=== PATIENT | female | born 1960 | race Caucasian/White ===

== ENCOUNTER 2016-10-30 20:59 | Inpatient (IN) | payer MEDICARE, MEDICAID ==
--- NOTE | 2016-10-30 21:44 | ER Document Report ---
ED Medical Screen (RME) - General Stated Complaint: POSSIBLE SYNCOPE,CONGESTION Mode of Arrival: Wheelchair Information source: Patient Notes: Patient is a 56 yo FM who presents with vomiting and diarrhea for the past 3 days with associated anorexia. She has been unable to keep down even water and ice chips. She also endorses 3 day history of nasal congestion. She states today she "blacked out" 3 times today, once causing her to fall and hit her head on the kitchen sink. 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 She remembers each fall. She states she has pain in her lower back and rates it as a 4/5. Endorses cough, subjective fever, chills. She has tried tums with no relief but has not taken any of her reflux meds in 2 days. Review of Systems - Review of Systems Constitutional: See HPI Gastrointestinal: See HPI Musculoskeletal: See HPI Physical Exam - Vital signs Vitals: Temp Pulse Resp BP Pulse Ox 98.6 F 99 16 144/83 H 98 10/30/16 21:29 10/30/16 21:29 10/30/16 21:29 10/30/16 21:29 10/30/16 21:29 - Notes Notes: General: Appears ill but non-toxic. Sitting comfortably in wheelchair. No obvious signs of trauma. Course - Vital Signs Vital signs: Temp Pulse Resp BP Pulse Ox 98.6 F 99 16 144/83 H 98 10/30/16 21:29 10/30/16 21:29 10/30/16 21:29 10/30/16 21:29 10/30/16 21:29
[2016-10-31] MEDS ORDERED: ONDANSETRON HCL INJ/PF 4 MG/2 ML SDV IV ONE (00:50)
[2016-10-31] MEDS ORDERED: NORMAL SALINE 1000 ML 1,000 ML IV ONE ×2 (00:50→03:42)
[2016-10-31] MEDS ORDERED: METOCLOPRAMIDE HCL ORAL SOLN 10 MG/10 ML UDCUP PO ONE (02:09)
[2016-10-31] MEDS ORDERED: LIDOCAINE 2% VISCOUS SOLN 20 ML UDCUP PO ONE (02:09)
[2016-10-31] MEDS ORDERED: MAG HYDROX/AL HYDROX/SIMETH SUSP 30 ML UDCUP PO ONE (02:09)
[2016-10-31 02:12] LABS: ABSOLUTE BASOPHILS # (AUTO) 0.1 10^3/uL (0.0-0.2); ABSOLUTE LYMPHOCYTES (AUTO) 0.7 10^3/uL (0.5-4.7); ABSOLUTE MONOCYTES (AUTO) 0.6 10^3/uL (0.1-1.4); ABSOLUTE NEUT (AUTO) 7.5 10^3/uL (1.7-8.2); BASOPHILS % (AUTO) 0.6 % (0-2); EOSINOPHILS % (AUTO) 0.1 % (0-6); HEMATOCRIT 44.9 % (36.0-47.0); HEMOGLOBIN 14.7 g/dL (12.0-15.5); HGB HCT DIFFERENCE -0.8; LYMPHOCYTES % (AUTO) 8.2 % (13-45); MEAN CORPUSCULAR HEMOGLOBIN 29.5 pg (27.0-33.4); MEAN CORPUSCULAR HGB CONC 32.7 g/dL (32.0-36.0); MEAN CORPUSCULAR VOLUME 90 fl (80-97); MONOCYTES % (AUTO) 7.1 % (3-13); RED BLOOD COUNT 4.96 10^6/uL (3.72-5.28); RED CELL DISTRIBUTION WIDTH 16.4 % (11.5-14.0); WHITE BLOOD COUNT 8.9 10^3/uL (4.0-10.5)
[2016-10-31 02:40] LABS: ADD ON TESTING BLD IN LAB ACKNOWLEDGE
[2016-10-31 03:00] LABS: LIPASE 139.2 U/L (23-300)
[2016-10-31 03:02] LABS: ALANINE AMINOTRANSFERASE 39 U/L (9-52); ALBUMIN 3.3 g/dL (3.5-5.0); ALKALINE PHOSPHATASE 100 U/L (38-126); ANION GAP 12 (5-19); ASPARTATE AMINO TRANSFERASE 31 U/L (14-36); BILIRUBIN,TOTAL 0.2 mg/dL (0.2-1.3); BLOOD UREA NITROGEN 16 mg/dL (7-20); CALCIUM 10.4 mg/dL (8.4-10.2); CARBON DIOXIDE 26 mmol/L (22-30); CHLORIDE 106 mmol/L (98-107); CREATININE RESULT 0.68 mg/dL (0.52-1.25); GLUCOSE 108 mg/dL (75-110); POTASSIUM 3.7 mmol/L (3.6-5.0); TOTAL PROTEIN 5.8 g/dL (6.3-8.2)
[2016-10-31] MEDS ORDERED: ONDANSETRON ODT 4 MG TAB (6 TAB/DSPK) PO PRN (03:12)
[2016-10-31] MEDS ORDERED: CIPROFLOXACIN HCL 500 MG TABLET PO ONE (03:12)
--- NOTE | 2016-10-31 03:14 | ER Document Report ---
ED General - General Chief Complaint: Nausea/Vomiting/Diarrhea Stated Complaint: POSSIBLE SYNCOPE,CONGESTION Mode of Arrival: Wheelchair Notes: Patient is a 56-year-old female who presents with 3 days of nausea, vomiting and diarrhea with associated lightheadedness and 3 episodes of syncope. Patient states that during one of the episodes of lightheadedness and/or syncope she did land on her right low back and has had a mild pain to the right perilumbar spine since that time. Patient may have also struck her head on a sink but denies any pain to the area. This did occur greater than 48 hours ago and she denies any headache, weakness, numbness, or confusion. She does not use anticoagulation. Nothing improves or worsens the pain. Denies any associated weakness, numbness, bladder incontinence or retention, or difficulty with ambulation. States she's been taking tums at home without improvement of her symptoms. No known sick contacts. She has not spoken to her primary care physician regarding today's concerns. She has not tried anything for her vomiting or diarrhea. She has not noted any melena or hematochezia. No bilious vomiting. No history of small bowel obstruction. She is continued to pass flatus. Has been able to tolerate small amounts of water. TRAVEL OUTSIDE OF THE [place] IN LAST 30 DAYS: No - Related Data Allergies/Adverse Reactions: cefaclor [From [facility]] Allergy (Verified 10/31/16 01:23) Past Medical History - General Information source: Patient Last Menstrual Period: n/a - Social History Smoking Status: Current Every Day Smoker Chew tobacco use (# tins/day): No Frequency of alcohol use: None Drug Abuse: None Lives with: Spouse/Significant other Family History: Reviewed & Not Pertinent Patient has suicidal ideation: No Patient has homicidal ideation: No Review of Systems - Review of Systems Notes: Constitutional: Negative for fever. HENT: Negative for sore throat. Eyes: Negative for visual changes. Cardiovascular: Negative for chest pain. Respiratory: Negative for shortness of breath. Gastrointestinal: Negative for abdominal pain, positive for vomiting and diarrhea Genitourinary: Negative for dysuria. Musculoskeletal: Positive for back pain. Skin: Negative for rash. Neurological: Negative for headaches, weakness or numbness. 10 point ROS negative except as marked above and in HPI. Physical Exam - Vital signs Vitals: Temp Pulse Resp BP Pulse Ox 98.6 F 99 16 144/83 H 98 10/30/16 21:29 10/30/16 21:29 10/30/16 21:29 10/30/16 21:29 10/30/16 21:29 Interpretation: Hypertensive Notes: PHYSICAL EXAMINATION: GENERAL: Well-appearing, well-nourished and in no acute distress. HEAD: Atraumatic, normocephalic. EYES: Pupils equal round and reactive to light, extraocular movements intact, sclera anicteric, conjunctiva are normal. ENT: nares patent, oropharynx clear without exudates. Moist mucous membranes. NECK: Normal range of motion, supple without lymphadenopathy LUNGS: Breath sounds clear to auscultation bilaterally and equal. No wheezes rales or rhonchi. HEART: Regular rate and rhythm without murmurs ABDOMEN: Soft, nontender, normoactive bowel sounds. No guarding, no rebound. No masses appreciated. EXTREMITIES: Normal range of motion, no pitting or edema. No cyanosis. NEUROLOGICAL: No focal neurological deficits. Moves all extremities spontaneously and on command. PSYCH: Normal mood, normal affect. SKIN: Warm, Dry, normal turgor, no rashes or lesions noted. Course - Re-evaluation Re-evalutation: 10/31/16 03:19 Presentation of an overall well-appearing patient in no acute distress with complaints of nausea, vomiting, diarrhea. This is consistent with likely gastroenteritis. Patient has no abdominal tenderness on exam and specifically no tenderness in the RLQ, LLQ, RUQ. Overall well hydrated on exam. Able to tolerate oral intake here in the emergency department. Low clinical suspicion for any acute life-threatening etiology based on exam and history including acute cholecystitis, SBO, appendicitis, nephrolithiasis, or pylonephritis. Regarding her possible head trauma: No focal neurologic deficits on exam, no evidence of basilar skull fracture on exam without evidence of hemotympanum, raccoon eyes, or periauricular hematoma. No papilledema. Patient is not on anticoagulation. GCS is 15. No loss of consciousness. No episodes of vomiting. Patient is therefore negative via [place] head CT criteria and CT imaging will not be obtained at this time. Her laboratories here do not demonstrate any evidence of a hydration acute kidney injury. CBC unremarkable and a single troponin is also negative given that patient apparently did complain of chest pain in triage but denies this complaint to me. So the syncope appear most related to dehydration in the setting of multiple episodes of vomiting. Her EKG is without concerning findings and shows a normal sinus rhythm without QT prolongation, evidence of hypertrophic cardiomyopathy, Yumiko- Parkinson-White syndrome, or Brugada syndrome. At this time will discharge with return precautions and follow-up recommendations. Verbal discharge instructions given a the bedside and opportunity for questions given. Medication warnings reviewed. Patient is in agreement with this plan and has verbalized understanding of return precautions and the need for primary care follow-up in the next 24-72 hours. - Vital Signs Vital signs: Temp Pulse Resp BP Pulse Ox 98.6 F 99 16 144/83 H 98 10/30/16 21:43 10/30/16 21:43 10/30/16 21:43 10/30/16 21:43 10/30/16 21:43 - Laboratory Result Diagrams: 10/31/16 01:45 10/31/16 02:37 Laboratory results interpreted by me: 10/31/16 10/31/16 01:45 02:37 RDW 16.4 H Plt Count 523 H Seg Neutrophils % 84.0 H Lymphocytes % 8.2 L Calcium 10.4 H Total Protein 5.8 L Albumin 3.3 L - Diagnostic Test Radiology reviewed: Image reviewed, Reports reviewed Radiology results interpreted by me: 10/31/16 03:21 Chest x-ray: No acute infiltrate or pneumothorax - EKG Interpretation by Me Additional EKG results interpreted by me: 10/31/16 03:21 Normal sinus rhythm. Rate 73. No ST elevations or depressions. QTC 419. Discharge - Discharge Clinical Impression: Vomiting and diarrhea Condition: Good Disposition: HOME, SELF-CARE Additional Instructions: Your symptoms are likely due to a viral illness and should resolve in the next several days. However, given the duration of your symptoms even started on antibiotics to treat a possible bacterial colitis. Continue to stay hydrated with plenty of solution such as Gatorade or Pedialyte. You are being prescribed Zofran to take as needed for nausea and vomiting. Please return if you develop severe abdominal pain, pass out, become unable to tolerate any oral fluids for 12 more hours, or any other symptoms that are concerning to you. Prescriptions: Ciprofloxacin HCl [Cipro 500 mg Tablet] 500 mg PO BID #10 tablet
[2016-10-31] MEDS ORDERED: PROCHLORPERAZINE EDISYLATE INJ 10 MG/2 ML VIAL IV ONE (03:27)
[2016-10-31] MEDS ORDERED: DIPHENHYDRAMINE HCL 50 MG/ML VIAL IV ONE (03:27)
[2016-10-31] MEDS ORDERED: 1/2 NORMAL SALINE 2,000 ML IV ONE (07:17)
[2016-10-31] MEDS ORDERED: POTASSI CL 20 MEQ/D5-1/2NS 1L 1,000 ML IV PRN (07:19)
[2016-10-31] MEDS ORDERED: NICOTINE 21 MG/24 HR PATCH.TD24 TD PRN (07:21)
[2016-10-31] MEDS ORDERED: ACETAMINOPHEN 325 MG TABLET PO PRN (07:23)
[2016-10-31 07:32] LABS: ADD ON TESTING BLD IN LAB ACKNOWLEDGE
--- NOTE | 2016-10-31 07:50 | PDOC H&P ---
History of Present Illness Admission Date/PCP: Out of town Patient complains of: N/V/D, syncope History of Present Illness: MAGGIE CORTES is a 56 year old female, pack-a-day smoker, and with underlying hypothyroidism, easy bruising, mild reflux, and mild anxiety and depression, without suicidal or homicidal ideation, presents to the emergency room for evaluation of above complaints. Patient has been discussed with emergency room physician who evaluated the patient. She describes a three-day history of multiple episodes of nausea vomiting and diarrhea. No hematemesis, hematochezia, coffee ground emesis or melena. States she has mild episodes of this perhaps once a year, but has never been as sick as she has for the last 2 or 3 days. She's had 3 syncopal episodes, and thinks she probably struck her head on her bathroom sink one of these times. Has not vomited in a number of hours now but short time prior to my being called about the patient, she reportedly did have a large watery stool. Intermittent mostly cramping upper abdominal discomfort. Subjective fever and chills. She's been so weak in the emergency room, that she cannot get up off the stretcher by herself. Has only been able to hold down a few sips of water. Remains nauseated. No history of C. difficile infection. No unusual oral intake. No friends or family with similar complaints. Laboratory results are listed in [facility] and are reviewed. X-ray summary results are listed below, with full report(s) reviewed. . EKG reviewed . Social history/personal habits: . 2 children. On disability due to degenerative spinal disease. Pack of cigarettes per day. No alcohol or illicit drug use. Should patient become mentally incapacitated, surrogate health care decision maker uncertain at this point in time.. Family History : Children and siblings are healthy. Father of a myocardial infarction. Mother of cancer. Allergies/adverse reactions are listed in [facility] and are reviewed. Home medications are reviewed by discussion with patient and review of her list of medications from her smartphone and are to be reconciled by nursing staff in [facility]. Home medications initially autopopulated into [facility] may not accurately reflect patient's true medications, dosages, and/or frequencies. REVIEW OF SYSTEMS: Constitutional: See history and present illness. Eyes: Wears glasses. ENT: No swallowing problems or complaints. Partial hearing loss. Pulmonary: No current complaints. Cardiovascular: No current complaints, including chest pain. Gastrointestinal: See history and present illness. Skin: No current complaints, including rashes. Hematologic: Easy bruising. Neurologic: No current complaints, including numbness or tingling. Musculoskeletal: Chronic spine pain from degenerative disease. Psychiatric: Anxiety depression; denies suicidal or homicidal ideation. Endocrine: No current complaints, including polyuria. Genitourinary: No current complaints, including dysuria. PHYSICAL EXAMINATION: 5 feet 3 inches tall. 47.8 kg. BMI 18.7 kg/m. Blood pressure 144/63. 90% saturation on room air. Pulse 78 and regular. Respirations are 18 and unlabored. Temperature 98.8. Thin somewhat chronically ill-appearing female who appears a bit older than her stated age. Appears somewhat fatigued, and appears not to feel very well. Otherwise, pleasant awake alert and cooperative. Female emergency room nurse Missy is present. Son is present at her side, found asleep and snoring. Patient approves. Skin is warm and dry. No grossly obvious evidence of rash in areas of skin examined. No subcutaneous nodules palpated. ENT: Hearing grossly normal to normal conversation. Tongue midline on protrusion pink and slightly tacky Eyes: No scleral icterus. Pupils equal and reactive to light at 4 mm. [place] conjunctivae. She has a very small area of ecchymosis over the lateral aspect of her right upper periorbital ridge. No braden raccoon eyes on either side. Neck is supple and nontender to gentle active range of motion and palpation. Midline trachea. No palpable thyroid nodule mass enlargement or tenderness. Lymphatic: No palpable cervical or clavicular nodes. Neck and lymphatic exams limited by patient body habitus. Psychiatric: Fair to reasonable insight into acute and chronic medical issues. Oriented to time location and why here. Lungs: Auscultation reveals clear and equal breath sounds bilaterally. No use of accessory respiratory muscles. Cardiovascular: Heart regular rate and rhythm, without gallop murmur or rub. No carotid or abdominal aortic bruits. No ankle or pedal edema. palpable dorsalis pedis pulses. Abdomen: soft, slightly distended with positive bowel sounds. Very mild diffuse upper abdominal discomfort to palpation. Certainly no evidence of guarding or peritoneal signs. No palpable upper abdominal mass or organomegaly. Extremities: Feet are warm and dry. No calf tenderness to compression. No grossly obvious visual evidence of calf swelling. Gentle manipulation of lower extremities fails to reveal any obvious evidence of injury or instability to knees hips or ankles. Neurologic: Moves upper extremities grossly normally. Patellar reflexes absent. Absent Babinski. Light touch is intact at feet. Dorsiflexion and plantarflexion of feet 5 / 5 and symmetric. Past Medical History Cardiac Medical History: Denies: Congestive Heart Failure, DVT, Myocardial Infarction, Hyperlipidema, Hypertension, Pulmonary Embolism Pulmonary Medical History: Denies: Asthma, Chronic Obstructive Pulmonary Disease (COPD) Neurological Medical History: Denies: Hemorrhagic CVA, Ischemic CVA, Seizures Endocrine Medical History: Reports: Hypothyroidism Denies: Diabetes Mellitus Type 1, Diabetes Mellitus Type 2, Hyperthyroidism GI Medical History: Reports: Gastroesophageal Reflux Disease Denies: Cirrhosis, Hepatitis, Peptic Ulcer Disease Psychiatric Medical History: Reports: Depression, General Anxiety Disorder, Tobacco Dependency Infectious Medical History: Denies: Hepatitis B, Hepatitis C Past Surgical History Past Surgical History: Reports: Appendectomy, Cholecystectomy, Tonsillectomy Social History Information Source: Patient, Emergency Med Personnel, [facility] Records Smoking Status: Current Every Day Smoker Frequency of Alcohol Use: None Hx Recreational Drug Use: No Drugs: None - Advance Directive Resuscitation Status: Full Code Family History Family History: Reviewed & Not Pertinent Parental Family History Reviewed: Yes Children Family History Reviewed: Yes Sibling(s) Family History Reviewed.: Yes Medication/Allergy Home Medications: Celecoxib 200 mg PO DAILY 10/31/16 Doxycycline Hyclate [Vibramycin] 100 mg PO BID 10/31/16 Duloxetine HCl [Cymbalta] 60 mg PO DAILY 10/31/16 Esomeprazole Mag Trihydrate [Nexium] 40 mg PO DAILY 10/31/16 Levothyroxine Sodium [Synthroid 0.1 mg Tablet] 0.1 mg PO DAILY 10/31/16 Oxycodone HCl 10 mg PO Q8HP PRN 10/31/16 Tizanidine HCl 4 mg PO Q8HP PRN 10/31/16 Tramadol HCl [Ultram 50 mg Tablet] 50 mg PO Q8HP PRN 10/31/16 Allergies/Adverse Reactions: cefaclor [From [facility]] Allergy (Verified 10/31/16 01:23) Physical Exam Vital Signs: Temp Pulse Resp BP Pulse Ox 98.8 F 78 18 144/63 H 98 10/31/16 06:50 10/31/16 06:50 10/31/16 06:50 10/31/16 06:50 10/31/16 06:50 Intake & Output 10/30/16 10/31/16 11/01/16 00:59 00:59 00:59 Weight 47.8 kg Results Laboratory Results: 10/31/16 01:45 10/31/16 02:37 10/31/16 10/31/16 10/31/16 01:45 01:45 02:37 WBC 8.9 RBC 4.96 Hgb 14.7 Hct 44.9 MCV 90 MCH 29.5 MCHC 32.7 RDW 16.4 H Plt Count 523 H Seg Neutrophils % 84.0 H Lymphocytes % 8.2 L Monocytes % 7.1 Eosinophils % 0.1 Basophils % 0.6 Absolute Neutrophils 7.5 Absolute Lymphocytes 0.7 Absolute Monocytes 0.6 Absolute Eosinophils 0.0 Absolute Basophils 0.1 Sodium Cancelled Potassium Cancelled Chloride Cancelled Carbon Dioxide Cancelled Anion Gap Cancelled BUN Cancelled Creatinine Cancelled Est GFR ( Amer) Cancelled Est GFR (Non-Af Amer) Cancelled Glucose Cancelled Calcium Cancelled Total Bilirubin Cancelled AST Cancelled ALT Cancelled Alkaline Phosphatase Cancelled Total Protein Cancelled Albumin Cancelled Lipase 139.2 10/31/16 02:37 WBC RBC Hgb Hct MCV MCH MCHC RDW Plt Count Seg Neutrophils % Lymphocytes % Monocytes % Eosinophils % Basophils % Absolute Neutrophils Absolute Lymphocytes Absolute Monocytes Absolute Eosinophils Absolute Basophils Sodium 144.0 Potassium 3.7 Chloride 106 Carbon Dioxide 26 Anion Gap 12 BUN 16 Creatinine 0.68 Est GFR ( Amer) > 60 Est GFR (Non-Af Amer) > 60 Glucose 108 Calcium 10.4 H Total Bilirubin 0.2 AST 31 ALT 39 Alkaline Phosphatase 100 Total Protein 5.8 L Albumin 3.3 L Lipase 10/31/16 01:45 Troponin I < 0.012 Impressions: Chest X-Ray 10/31/16 00:51 IMPRESSION: NO ACUTE RADIOGRAPHIC FINDING IN THE CHEST. Assessment & Plan - Diagnosis (1) Head trauma Qualifiers: Encounter type: initial encounter Qualified Code(s): S09.90XA - Unspecified injury of head, initial encounter Is this a current diagnosis for this admission?: YesPlan: Grossly neurologically intact. CT scan of head without contrast. Discussed with daytime hospitalist team. (2) Syncope Qualifiers: Syncope type: unspecified Qualified Code(s): R55 - Syncope and collapse Is this a current diagnosis for this admission?: YesPlan: Likely due primarily to dehydration. Strongly encouraged patient not to get out of bed without notifying staff to avoid a fall with injury. Orthostatic vital signs every 4 hours while awake, starting at noon today. (3) Vomiting and diarrhea Is this a current diagnosis for this admission?: YesPlan: IV fluid boluses along with maintenance IV fluid. Strict intake and output. Ice chips only. IV Pepcid for gastritis prophylaxis. When necessary Phenergan. Stool for C. difficile is pending. We'll also send stool for culture and sensitivity, along with white cells. Knee high SCDs for DVT prophylaxis, along with subcutaneous heparin. Impression and plans were discussed with patient, who concurs. Time spent in evaluation and management of patient: 58 minutes. (4) Hypothyroid Qualifiers: Hypothyroidism type: unspecified Qualified Code(s): E03.9 - Hypothyroidism, unspecified Is this a current diagnosis for this admission?: YesPlan: TSH is pending. Resume home medications as appropriate once these have been determined and reviewed. - Inpatient Certification Based on my medical assessment, after consideration of the patient's comorbidities, presenting symptoms, or acuity I expect that the services needed warrant INPATIENT care.: Yes I certify that my determination is in accordance with my understanding of Medicare's requirements for reasonable and necessary INPATIENT services [42 CFR 412.3e].: Yes Medical Necessity: Need Close Monitoring Due to Risk of Patient Decompensation, Need For IV Fluids, Need For Continuous Telemetry Monitoring, Risk of Complication if Not Cared For in Hospital Post Hospital Care: D/C or Transfer Summary
[2016-10-31 08:01] LABS: MAGNESIUM 1.7 mg/dL (1.6-2.3)
--- NOTE | 2016-10-31 08:04 | EKG REPORT ---
SEVERITY:- BORDERLINE ECG - SINUS RHYTHM BORDERLINE T ABNORMALITIES, INFERIOR LEADS : Confirmed by: Efrain Falcon MD 31-Oct-2016 08:03:39
[2016-10-31] MEDS ORDERED: LEVOTHYROXINE SODIUM 0.1 MG TABLET PO SCH (10:00)
[2016-10-31] MEDS ORDERED: FAMOTIDINE INJ/PF 20 MG/2 ML SDV IV SCH (10:00)
[2016-10-31] MEDS: PANTOPRAZOLE SODIUM 40 MG VIAL IV SCH (10:30)
[2016-10-31] MEDS: DULOXETINE HCL 30 MG CAPSULE.DR PO SCH (10:30)
[2016-10-31] MEDS ORDERED: HYDROMORPHONE HCL INJ/PF 2 MG/ML AMPULE IV ONE (13:56)
--- NOTE | 2016-10-31 14:00 | PDOC PROGRESS REPORT ---
Subjective Progress Note for:: 10/31/16 Subjective:: Patient does not feel much better than she did on presentation. She continues to have nausea, vomiting, diarrhea. She has no fevers or chills. She has no abdominal pain, no chest pain. She has no headache. Physical Exam Vital Signs: Temp Pulse Resp BP Pulse Ox 98.1 F 59 L 18 122/59 L 97 10/31/16 12:05 10/31/16 12:05 10/31/16 12:05 10/31/16 12:05 10/31/16 12:05 GENERAL: No acute distress, ill appearing HEENT: Conjunctiva clear, nonicteric, moist mucous membranes, no JVD, midline trachea RESPIRATORY: Clear to auscultation bilaterally, no wheezes, no rhonchi CARDIAC: Regular rate and rhythm, no murmurs/gallops/rubs ABDOMEN: Soft, nondistended, nontender, positive bowel sounds, no rebound, no guarding EXTREMETIES: No edema, cyanosis, clubbing NEUROLOGIC: Alert, oriented to person/place/time, CN's grossly intact, no focal deficits SKIN: No rash, wounds PSYCH: Normal mood, normal affect Results Impressions: Head CT 10/31/16 00:00 IMPRESSION: NORMAL BRAIN CT WITHOUT CONTRAST. Chest X-Ray 10/31/16 00:51 IMPRESSION: NO ACUTE RADIOGRAPHIC FINDING IN THE CHEST. Assessment & Plan - Diagnosis (1) Vomiting and diarrhea Is this a current diagnosis for this admission?: YesPlan: Patient probably has some degree of acute gastroenteritis. She also has not taken her chronic oxycodone for 4 days prior to presentation secondary to nausea and vomiting so I suspect there is an opiate withdrawal component to her symptoms. Continue supportive care with antiemetics, IV fluids. I would like to give patient 1 time dose of IV Dilaudid to see if her symptoms niyah. (2) Chronic pain Is this a current diagnosis for this admission?: YesPlan: Patient is on chronic opiate therapy with oxycodone. She has not been able to keep her medications down for the past 4 days secondary to nausea and vomiting. (3) Tobacco abuse Is this a current diagnosis for this admission?: Yes (4) Depression Is this a current diagnosis for this admission?: YesPlan: Continue Cymbalta. (5) Hypothyroid Qualifiers: Hypothyroidism type: unspecified Qualified Code(s): E03.9 - Hypothyroidism, unspecified Is this a current diagnosis for this admission?: YesPlan: TSH is abnormally low. Repeat TSH in the morning. Continue current dose of Synthroid 100 g daily for now. - Time Time Spent with patient: 25-34 minutes Smoking Cessation Education: 3 to 10 minutes
[2016-10-31] MEDS: POTASSI CL 20 MEQ/D5-1/2NS 1L 1,000 ML IV PRN (23:30)
[2016-10-31] MEDS: HYDROMORPHONE HCL INJ/PF 2 MG/ML AMPULE IV PRN (23:32)
[2016-10-31] MEDS: ONDANSETRON HCL INJ/PF 4 MG/2 ML SDV IV PRN (23:33)
[2016-10-31] MEDS: LEVOTHYROXINE SODIUM 0.1 MG TABLET PO SCH (23:33)
[2016-11-01] MEDS: HEPARIN SOD (PORCINE) 5,000 UNIT/ML 1 ML SYRINGE SUBCUT SCH ×3 (01:23→22:45)
[2016-11-01 04:04] LABS: ABSOLUTE BASOPHILS # (AUTO) 0.1 10^3/uL (0.0-0.2); ABSOLUTE LYMPHOCYTES (AUTO) 1.4 10^3/uL (0.5-4.7); ABSOLUTE MONOCYTES (AUTO) 1.3 10^3/uL (0.1-1.4); ABSOLUTE NEUT (AUTO) 10.6 10^3/uL (1.7-8.2); BASOPHILS % (AUTO) 0.5 % (0-2); EOSINOPHILS % (AUTO) 0.2 % (0-6); HEMATOCRIT 40.3 % (36.0-47.0); HEMOGLOBIN 12.8 g/dL (12.0-15.5); HGB HCT DIFFERENCE -1.9; LYMPHOCYTES % (AUTO) 10.5 % (13-45); MEAN CORPUSCULAR HEMOGLOBIN 28.5 pg (27.0-33.4); MEAN CORPUSCULAR HGB CONC 31.7 g/dL (32.0-36.0); MEAN CORPUSCULAR VOLUME 90 fl (80-97); MONOCYTES % (AUTO) 9.4 % (3-13); RED BLOOD COUNT 4.48 10^6/uL (3.72-5.28); RED CELL DISTRIBUTION WIDTH 15.6 % (11.5-14.0); SEGMENTED NEUTROPHILS % (AUTO) 79.4 % (42-78); WHITE BLOOD COUNT 13.4 10^3/uL (4.0-10.5)
[2016-11-01 04:20] LABS: ANION GAP 9 (5-19); BLOOD UREA NITROGEN 8 mg/dL (7-20); CALCIUM 9.1 mg/dL (8.4-10.2); CARBON DIOXIDE 30 mmol/L (22-30); CHLORIDE 104 mmol/L (98-107); CREATININE RESULT 0.51 mg/dL (0.52-1.25); GLUCOSE 124 mg/dL (75-110); MAGNESIUM 1.7 mg/dL (1.6-2.3); POTASSIUM 3.5 mmol/L (3.6-5.0); SODIUM 142.6 mmol/L (137-145)
[2016-11-01 04:49] LABS: THYROID STIMULATING HORMONE < 0.02 uIU/mL (0.47-4.68)
[2016-11-01] MEDS: ONDANSETRON HCL INJ/PF 4 MG/2 ML SDV IV PRN ×2 (06:18→15:05)
[2016-11-01] MEDS: HYDROMORPHONE HCL INJ/PF 2 MG/ML AMPULE IV PRN ×3 (06:18→20:50)
[2016-11-01] MEDS ORDERED: POTASSI CL 20 MEQ/50 ML RIDER 50 ML IV ONE (09:00)
[2016-11-01] MEDS: LEVOTHYROXINE SODIUM 0.1 MG TABLET PO SCH (09:50)
[2016-11-01] MEDS: DULOXETINE HCL 30 MG CAPSULE.DR PO SCH (09:50)
[2016-11-01] MEDS: PANTOPRAZOLE SODIUM 40 MG VIAL IV SCH (09:50)
[2016-11-01] MEDS: OXYCODONE HCL IR 5 MG TABLET PO PRN (09:50)
[2016-11-01] MEDS: PROMETHAZINE HCL INJ 25 MG/1 ML VIAL IV PRN ×2 (09:51→20:50)
--- NOTE | 2016-11-01 09:51 | PDOC PROGRESS REPORT ---
Subjective Progress Note for:: 11/01/16 Subjective:: Patient is feeling generally better today. She has had nausea but no vomiting. She has not had desire to take clear liquid diet. I have discussed her hypothyroid state with her and she states she has had this diagnosis for 2-3 years. She was never evaluated by endocrinology. She has never had imaging in the form of MRI of her brain. She denies chronic headache or diplopia. Patient denies fever, chills, headache, new focal weakness, chest pain, shortness of breath, diarrhea, constipation. Physical Exam Vital Signs: Temp Pulse Resp BP Pulse Ox 98.2 F 61 14 132/76 H 99 11/01/16 07:17 11/01/16 07:17 11/01/16 07:17 11/01/16 07:17 11/01/16 07:17 Intake & Output 10/31/16 11/01/16 11/02/16 06:59 06:59 06:59 Intake Total 940 Output Total 0 Balance 940 Weight 50.9 kg Results Laboratory Results: 11/01/16 03:42 11/01/16 03:42 11/01/16 11/01/16 11/01/16 03:42 03:42 03:42 WBC 13.4 H RBC 4.48 Hgb 12.8 Hct 40.3 MCV 90 MCH 28.5 MCHC 31.7 L RDW 15.6 H Plt Count 398 Seg Neutrophils % 79.4 H Lymphocytes % 10.5 L Monocytes % 9.4 Eosinophils % 0.2 Basophils % 0.5 Absolute Neutrophils 10.6 H Absolute Lymphocytes 1.4 Absolute Monocytes 1.3 Absolute Eosinophils 0.0 Absolute Basophils 0.1 Sodium 142.6 Potassium 3.5 L Chloride 104 Carbon Dioxide 30 Anion Gap 9 BUN 8 Creatinine 0.51 L Est GFR ( Amer) > 60 Est GFR (Non-Af Amer) > 60 Glucose 124 H Calcium 9.1 Magnesium 1.7 TSH < 0.02 L Free T4 0.74 L Free T3 pg/mL 2.40 L Impressions: Head CT 10/31/16 00:00 IMPRESSION: NORMAL BRAIN CT WITHOUT CONTRAST. Chest X-Ray 10/31/16 00:51 IMPRESSION: NO ACUTE RADIOGRAPHIC FINDING IN THE CHEST. Assessment & Plan - Diagnosis (1) Vomiting and diarrhea Is this a current diagnosis for this admission?: YesPlan: Patient probably has some degree of acute gastroenteritis. She also has not taken her chronic oxycodone for 4 days prior to presentation secondary to nausea and vomiting so I suspect there is an opiate withdrawal component to her symptoms. Continue supportive care with antiemetics, IV fluids. (2) Chronic pain Is this a current diagnosis for this admission?: YesPlan: Patient is on chronic opiate therapy with oxycodone. Continue when necessary IV Dilaudid until patient can take oral intake better. (3) Tobacco abuse Is this a current diagnosis for this admission?: Yes (4) Depression Is this a current diagnosis for this admission?: YesPlan: Continue Cymbalta. (5) Hypothyroid Qualifiers: Hypothyroidism type: unspecified Qualified Code(s): E03.9 - Hypothyroidism, unspecified Is this a current diagnosis for this admission?: YesPlan: Thyroid function studies are consistent with central hypothyroid. Check MRI of pituitary fossa. Refer patient to endocrinology as an outpatient (Dr. Cash- [facility]). Continue current dose of Synthroid 100 g daily for now. - Time Time Spent with patient: 35 or more minutes
[2016-11-01 10:06] LABS: APPEARANCE,URINE CLEAR; BILIRUBIN,URINE NEGATIVE (NEGATIVE); GLUCOSE, URINE NEGATIVE (NEGATIVE); KETONES,URINE NEGATIVE (NEGATIVE); LEUKOCYTE ESTERASE,URINE MODERATE (NEGATIVE); NITRITE,URINE NEGATIVE (NEGATIVE); PROTEIN,URINE NEGATIVE (NEGATIVE); URINE SPECIFIC GRAVITY 1.009; UROBILINOGEN,URINE NEGATIVE mg/dL (<2.0)
[2016-11-01] MEDS: POTASSI CL 20 MEQ/D5-1/2NS 1L 1,000 ML IV PRN ×2 (15:06→23:35)
[2016-11-02 05:40] LABS: ABSOLUTE BASOPHILS # (AUTO) 0.1 10^3/uL (0.0-0.2); ABSOLUTE EOSINOPHILS # (AUTO) 0.1 10^3/uL (0.0-0.6); ABSOLUTE LYMPHOCYTES (AUTO) 1.1 10^3/uL (0.5-4.7); ABSOLUTE MONOCYTES (AUTO) 0.8 10^3/uL (0.1-1.4); ABSOLUTE NEUT (AUTO) 6.3 10^3/uL (1.7-8.2); BASOPHILS % (AUTO) 0.7 % (0-2); HEMATOCRIT 41.3 % (36.0-47.0); HEMOGLOBIN 13.4 g/dL (12.0-15.5); HGB HCT DIFFERENCE -1.1; LYMPHOCYTES % (AUTO) 12.8 % (13-45); MEAN CORPUSCULAR HEMOGLOBIN 29.2 pg (27.0-33.4); MEAN CORPUSCULAR HGB CONC 32.5 g/dL (32.0-36.0); MEAN CORPUSCULAR VOLUME 90 fl (80-97); MONOCYTES % (AUTO) 9.8 % (3-13); RED CELL DISTRIBUTION WIDTH 15.5 % (11.5-14.0); SEGMENTED NEUTROPHILS % (AUTO) 75.7 % (42-78); WHITE BLOOD COUNT 8.3 10^3/uL (4.0-10.5)
[2016-11-02 06:09] LABS: ANION GAP 10 (5-19); BLOOD UREA NITROGEN 2 mg/dL (7-20); CALCIUM 8.5 mg/dL (8.4-10.2); CARBON DIOXIDE 28 mmol/L (22-30); CHLORIDE 106 mmol/L (98-107); CREATININE RESULT 0.52 mg/dL (0.52-1.25); GLUCOSE 98 mg/dL (75-110); POTASSIUM 3.7 mmol/L (3.6-5.0); SODIUM 143.8 mmol/L (137-145)
[2016-11-02] MEDS: HYDROMORPHONE HCL INJ/PF 2 MG/ML AMPULE IV PRN ×3 (06:50→22:31)
[2016-11-02] MEDS: ONDANSETRON HCL INJ/PF 4 MG/2 ML SDV IV PRN ×3 (06:50→21:12)
[2016-11-02] MEDS: POTASSI CL 20 MEQ/D5-1/2NS 1L 1,000 ML IV PRN ×3 (06:55→22:47)
[2016-11-02] MEDS: DULOXETINE HCL 30 MG CAPSULE.DR PO SCH (09:59)
[2016-11-02] MEDS: PANTOPRAZOLE SODIUM 40 MG VIAL IV SCH (09:59)
[2016-11-02] MEDS: LEVOTHYROXINE SODIUM 0.1 MG TABLET PO SCH (09:59)
[2016-11-02] MEDS: HEPARIN SOD (PORCINE) 5,000 UNIT/ML 1 ML SYRINGE SUBCUT SCH ×2 (10:00→21:12)
[2016-11-02] MEDS: OXYCODONE HCL IR 5 MG TABLET PO PRN ×2 (11:35→21:12)
[2016-11-02] MEDS: PROMETHAZINE HCL INJ 25 MG/1 ML VIAL IV PRN (11:36)
--- NOTE | 2016-11-02 11:38 | PDOC PROGRESS REPORT ---
Subjective Progress Note for:: 11/02/16 Subjective:: Patient complains of nasal congestion and postnasal drip. She is tolerating clear liquids. Patient denies fever, chills, headache, new focal weakness, chest pain, shortness of breath, diarrhea, constipation. Physical Exam Vital Signs: Temp Pulse Resp BP Pulse Ox 98.5 F 62 15 126/63 H 95 11/02/16 07:23 11/02/16 07:23 11/02/16 07:23 11/02/16 07:23 11/02/16 07:23 Intake & Output 11/01/16 11/02/16 11/03/16 06:59 06:59 06:59 Intake Total 940 3068 Output Total 0 300 Balance 940 2768 Weight 50.9 kg GENERAL: No acute distress HEENT: Conjunctiva clear, ecchymosis over right eye, nonicteric, moist mucous membranes, no JVD, midline trachea RESPIRATORY: Clear to auscultation bilaterally, no wheezes, no rhonchi CARDIAC: Regular rate and rhythm, no murmurs/gallops/rubs ABDOMEN: Soft, nondistended, nontender, positive bowel sounds, no rebound, no guarding EXTREMETIES: No edema, cyanosis, clubbing NEUROLOGIC: Alert, oriented to person/place/time, CN's grossly intact, no focal deficits SKIN: No rash, wounds PSYCH: Normal mood, normal affect Results Laboratory Results: 11/02/16 04:20 11/02/16 04:20 11/02/16 11/02/16 04:20 04:20 WBC 8.3 RBC 4.60 Hgb 13.4 Hct 41.3 MCV 90 MCH 29.2 MCHC 32.5 RDW 15.5 H Plt Count 420 Seg Neutrophils % 75.7 Lymphocytes % 12.8 L Monocytes % 9.8 Eosinophils % 1.0 Basophils % 0.7 Absolute Neutrophils 6.3 Absolute Lymphocytes 1.1 Absolute Monocytes 0.8 Absolute Eosinophils 0.1 Absolute Basophils 0.1 Sodium 143.8 Potassium 3.7 Chloride 106 Carbon Dioxide 28 Anion Gap 10 BUN 2 L Creatinine 0.52 Est GFR ( Amer) > 60 Est GFR (Non-Af Amer) > 60 Glucose 98 Calcium 8.5 Impressions: Head CT 10/31/16 00:00 IMPRESSION: NORMAL BRAIN CT WITHOUT CONTRAST. Chest X-Ray 10/31/16 00:51 IMPRESSION: NO ACUTE RADIOGRAPHIC FINDING IN THE CHEST. Head MRI 11/01/16 09:46 IMPRESSION: UNREMARKABLE MRI OF THE BRAIN WITHOUT INTRAVENOUS GADOLINIUM CONTRAST. NO MASS LESION WITHIN THE PITUITARY FOSSA. PARTIAL VISUALIZATION OF DEGENERATIVE CHANGES CERVICAL SPINE. CORRELATE WITH SYMPTOMS. Assessment & Plan - Diagnosis (1) Vomiting and diarrhea Is this a current diagnosis for this admission?: YesPlan: Patient probably has some degree of acute gastroenteritis. She also has not taken her chronic oxycodone for 4 days prior to presentation secondary to nausea and vomiting so I suspect there is an opiate withdrawal component to her symptoms. Continue supportive care with antiemetics, IV fluids. Stool culture negative. C. difficile negative. Advance diet as tolerated. Continue IV fluids for now. Patient does not have a primary care provider in the area so I will set her up to see Dr. Sebas Crawford for primary care after discharge. (2) Chronic pain Is this a current diagnosis for this admission?: YesPlan: Patient is on chronic opiate therapy with oxycodone. (3) Tobacco abuse Is this a current diagnosis for this admission?: Yes (4) Depression Is this a current diagnosis for this admission?: YesPlan: Continue Cymbalta. (5) Hypothyroid Qualifiers: Hypothyroidism type: unspecified Qualified Code(s): E03.9 - Hypothyroidism, unspecified Is this a current diagnosis for this admission?: YesPlan: Thyroid function studies are consistent with central hypothyroid. MRI of the brain with no evidence of pituitary mass. Refer patient to endocrinology as an outpatient (Dr. Cash-[facility]). Continue current dose of Synthroid 100 g daily for now. - Time Time Spent with patient: 25-34 minutes Anticipated discharge: Home Within: within 24 hours
[2016-11-02] MEDS: GUAIFENESIN 600 MG TABLET.SA PO SCH (21:12)
[2016-11-02] MEDS: FLUTICASONE NASAL SPRAY 50 MCG/SPRY 120 SPRAY/16 GM NASL SCH (21:12)
[2016-11-03] MEDS: PROMETHAZINE HCL INJ 25 MG/1 ML VIAL IV PRN ×3 (01:09→21:41)
[2016-11-03] MEDS: POTASSI CL 20 MEQ/D5-1/2NS 1L 1,000 ML IV PRN ×3 (06:24→23:23)
--- NOTE | 2016-11-03 09:39 | PDOC PROGRESS REPORT ---
Subjective Progress Note for:: 11/03/16 Subjective:: Patient is complaining of nasal congestion and left maxillary sinus pain over the past 24 hours. She has had very minimal oral intake. Patient denies fever, chills, headache, new focal weakness, chest pain, shortness of breath, abdominal pain, nausea, vomiting, diarrhea, constipation. Physical Exam Vital Signs: Temp Pulse Resp BP Pulse Ox 98.1 F 52 L 16 123/60 100 11/03/16 04:28 11/03/16 07:00 11/03/16 04:28 11/03/16 04:28 11/03/16 04:28 Intake & Output 11/02/16 11/03/16 11/04/16 06:59 06:59 06:59 Intake Total 3068 3758 Output Total 300 2 Balance 2768 3756 GENERAL: No acute distress HEENT: Conjunctiva clear, ecchymosis over right eye, nonicteric, moist mucous membranes, no JVD, midline trachea RESPIRATORY: Clear to auscultation bilaterally, no wheezes, no rhonchi CARDIAC: Regular rate and rhythm, no murmurs/gallops/rubs ABDOMEN: Soft, nondistended, nontender, positive bowel sounds, no rebound, no guarding EXTREMETIES: No edema, cyanosis, clubbing NEUROLOGIC: Alert, oriented to person/place/time, CN's grossly intact, no focal deficits SKIN: No rash, wounds PSYCH: Normal mood, normal affect Results Laboratory Results: 11/02/16 04:20 11/02/16 04:20 Impressions: Head CT 10/31/16 00:00 IMPRESSION: NORMAL BRAIN CT WITHOUT CONTRAST. Chest X-Ray 10/31/16 00:51 IMPRESSION: NO ACUTE RADIOGRAPHIC FINDING IN THE CHEST. Head MRI 11/01/16 09:46 IMPRESSION: UNREMARKABLE MRI OF THE BRAIN WITHOUT INTRAVENOUS GADOLINIUM CONTRAST. NO MASS LESION WITHIN THE PITUITARY FOSSA. PARTIAL VISUALIZATION OF DEGENERATIVE CHANGES CERVICAL SPINE. CORRELATE WITH SYMPTOMS. Assessment & Plan - Diagnosis (1) Vomiting and diarrhea Is this a current diagnosis for this admission?: YesPlan: Patient probably has some degree of acute gastroenteritis. She also has not taken her chronic oxycodone for 4 days prior to presentation secondary to nausea and vomiting so I suspect there is an opiate withdrawal component to her symptoms. Continue supportive care with antiemetics, IV fluids. Stool culture negative. C. difficile negative. Advance diet as tolerated. Continue IV fluids for now as patient is taking very little. Patient does not have a primary care provider in the area so I will set her up to see Dr. Sebas Crawford for primary care after discharge. (2) Chronic pain Is this a current diagnosis for this admission?: YesPlan: Patient is on chronic opiate therapy with oxycodone. (3) Tobacco abuse Is this a current diagnosis for this admission?: Yes (4) Depression Is this a current diagnosis for this admission?: YesPlan: Continue Cymbalta. (5) Hypothyroid Qualifiers: Hypothyroidism type: unspecified Qualified Code(s): E03.9 - Hypothyroidism, unspecified Is this a current diagnosis for this admission?: YesPlan: Thyroid function studies are consistent with central hypothyroid. MRI of the brain with no evidence of pituitary mass. Refer patient to endocrinology as an outpatient (Dr. Cash-[facility]). Continue current dose of Synthroid 100 g daily for now. (6) Maxillary sinusitis Qualifiers: Chronicity: acute Is this a current diagnosis for this admission?: YesPlan: Continue Flonase and Mucinex. Start Levaquin. Discontinue smoking. - Time Time Spent with patient: 35 or more minutes
[2016-11-03] MEDS ORDERED: LEVOFLOXACIN 750 MG TABLET PO SCH (10:00)
[2016-11-03] MEDS: HYDROMORPHONE HCL INJ/PF 2 MG/ML AMPULE IV PRN ×3 (10:33→21:42)
[2016-11-03] MEDS: DULOXETINE HCL 30 MG CAPSULE.DR PO SCH (10:33)
[2016-11-03] MEDS: LEVOTHYROXINE SODIUM 0.1 MG TABLET PO SCH (10:33)
[2016-11-03] MEDS: HEPARIN SOD (PORCINE) 5,000 UNIT/ML 1 ML SYRINGE SUBCUT SCH ×2 (10:33→21:40)
[2016-11-03] MEDS: ONDANSETRON HCL INJ/PF 4 MG/2 ML SDV IV PRN ×2 (10:33→17:21)
[2016-11-03] MEDS: LANSOPRAZOLE 30 MG TAB.RAP.DR PO SCH (10:34)
[2016-11-03] MEDS: GUAIFENESIN 600 MG TABLET.SA PO SCH ×2 (10:34→21:40)
[2016-11-03] MEDS: FLUTICASONE NASAL SPRAY 50 MCG/SPRY 120 SPRAY/16 GM NASL SCH ×2 (10:34→21:40)
[2016-11-03] MEDS: OXYCODONE HCL IR 5 MG TABLET PO PRN ×2 (13:25→21:41)
[2016-11-04] MEDS: HYDROMORPHONE HCL INJ/PF 2 MG/ML AMPULE IV PRN (02:46)
[2016-11-04] MEDS: ONDANSETRON HCL INJ/PF 4 MG/2 ML SDV IV PRN ×2 (02:47→09:26)
[2016-11-04 05:41] LABS: ABSOLUTE BASOPHILS # (AUTO) 0.1 10^3/uL (0.0-0.2); ABSOLUTE EOSINOPHILS # (AUTO) 0.3 10^3/uL (0.0-0.6); ABSOLUTE LYMPHOCYTES (AUTO) 2.4 10^3/uL (0.5-4.7); ABSOLUTE MONOCYTES (AUTO) 0.9 10^3/uL (0.1-1.4); ABSOLUTE NEUT (AUTO) 4.6 10^3/uL (1.7-8.2); BASOPHILS % (AUTO) 1.2 % (0-2); EOSINOPHILS % (AUTO) 3.6 % (0-6); HEMATOCRIT 39.9 % (36.0-47.0); HEMOGLOBIN 13.1 g/dL (12.0-15.5); HGB HCT DIFFERENCE -0.6; LYMPHOCYTES % (AUTO) 28.7 % (13-45); MEAN CORPUSCULAR HEMOGLOBIN 29.5 pg (27.0-33.4); MEAN CORPUSCULAR HGB CONC 32.9 g/dL (32.0-36.0); MEAN CORPUSCULAR VOLUME 90 fl (80-97); MONOCYTES % (AUTO) 10.7 % (3-13); RED BLOOD COUNT 4.46 10^6/uL (3.72-5.28); RED CELL DISTRIBUTION WIDTH 15.1 % (11.5-14.0); SEGMENTED NEUTROPHILS % (AUTO) 55.8 % (42-78); WHITE BLOOD COUNT 8.3 10^3/uL (4.0-10.5)
[2016-11-04] MEDS: OXYCODONE HCL IR 5 MG TABLET PO PRN (05:41)
[2016-11-04] MEDS: PROMETHAZINE HCL INJ 25 MG/1 ML VIAL IV PRN (05:48)
[2016-11-04 05:57] LABS: ANION GAP 11 (5-19); BLOOD UREA NITROGEN 4 mg/dL (7-20); CALCIUM 9.1 mg/dL (8.4-10.2); CARBON DIOXIDE 26 mmol/L (22-30); CHLORIDE 105 mmol/L (98-107); CREATININE RESULT 0.53 mg/dL (0.52-1.25); GLUCOSE 78 mg/dL (75-110); POTASSIUM 4.8 mmol/L (3.6-5.0); SODIUM 141.8 mmol/L (137-145)
[2016-11-04] MEDS ORDERED: OXYCODONE HCL IR 5 MG TABLET PO PRN ×2 (08:16→09:00)
[2016-11-04] MEDS ORDERED: ONDANSETRON 4 MG TAB.RAPDIS PO PRN (08:16)
[2016-11-04] MEDS ORDERED: TIZANIDINE HCL 4 MG TABLET PO PRN ×2 (08:17→08:45)
[2016-11-04] MEDS: DULOXETINE HCL 30 MG CAPSULE.DR PO SCH (09:24)
[2016-11-04] MEDS: GUAIFENESIN 600 MG TABLET.SA PO SCH (09:25)
[2016-11-04] MEDS: LANSOPRAZOLE 30 MG TAB.RAP.DR PO SCH (09:25)
[2016-11-04] MEDS: LEVOTHYROXINE SODIUM 0.1 MG TABLET PO SCH (09:25)
[2016-11-04] MEDS: HEPARIN SOD (PORCINE) 5,000 UNIT/ML 1 ML SYRINGE SUBCUT SCH (09:31)
[2016-11-04] MEDS ORDERED: LEVOFLOXACIN 750 MG TABLET PO SCH (10:00)
[2016-11-04] MEDS ORDERED: DOCUSATE SODIUM 100 MG CAPSULE PO SCH (10:00)
[2016-11-04] MEDS: FLUTICASONE NASAL SPRAY 50 MCG/SPRY 120 SPRAY/16 GM NASL SCH (13:31)
[2016-11-04 14:05] VITALS: BP 129/57
--- NOTE | 2016-11-05 22:20 | PDOC DISCHARGE SUMMARY ---
General - Admit/Disc Date/PCP Admission Date/Primary Care Provider: 11/03/16 09:39 Discharge Date: 11/04/16 - Discharge Diagnosis (1) Chronic pain Is this a current diagnosis for this admission?: Yes (2) Head trauma Is this a current diagnosis for this admission?: Yes (3) Syncope Is this a current diagnosis for this admission?: Yes (4) Tobacco abuse Is this a current diagnosis for this admission?: Yes (5) Vomiting and diarrhea Is this a current diagnosis for this admission?: Yes (6) Anxiety Is this a current diagnosis for this admission?: Yes (7) Depression Is this a current diagnosis for this admission?: Yes (8) Hypothyroid Is this a current diagnosis for this admission?: Yes - Additional Information Resuscitation Status: Full Code Discharge Diet: Full Liquids Discharge Activity: Activity As Tolerated Home Medications: Celecoxib 200 mg PO DAILY 10/31/16 Duloxetine HCl [Cymbalta] 60 mg PO DAILY 10/31/16 Esomeprazole Mag Trihydrate [Nexium] 40 mg PO DAILY 10/31/16 Levothyroxine Sodium [Synthroid 0.1 mg Tablet] 0.1 mg PO DAILY 10/31/16 Oxycodone HCl 10 mg PO Q8HP PRN 10/31/16 Tramadol HCl [Ultram 50 mg Tablet] 50 mg PO Q8HP PRN 10/31/16 Docusate Sodium [Colace 100 mg Capsule] 100 mg PO BID #60 capsule 11/04/16 Fluticasone Propionate [Flonase Nasal [place] 50 Mcg/[place] 16 gm] 1 spray NASL Q12 #1 spray.pump 11/04/16 Guaifenesin [Mucinex Sr 600 mg Tablet.sa] 600 mg PO Q12 #20 tablet.sa 11/04/16 Ondansetron [Zofran Odt 4 mg Tablet] 4 mg PO Q6HP PRN #20 tab.rapdis 11/04/16 Promethazine HCl [Phenergan 25 mg Supp.rect] 1 supp CO Q6HP PRN #12 supp.rect Tizanidine HCl 4 mg PO BIDP PRN #20 tablet 11/04/16 History of Present Illness History of Present Illness: Please see H&P for full history of present illness Hospital Course Hospital Course: Patient was admitted and started on IV fluids. She had some difficulty initially maintaining adequate nutrition. Patient tested negative for C. difficile, stool culture. There were no fecal leukocytes seen. Patient eventually was able to tolerate oral including clear to full liquids and felt ready for discharge home. Patient was discharged home in good condition with advice to follow-up with her primary care physician. This was likely secondary to viral gastroenteritis. Physical Exam Vital Signs: Temp Pulse Resp BP Pulse Ox 97.9 F 63 14 129/57 H 97 11/04/16 14:03 11/04/16 14:03 11/04/16 14:03 11/04/16 14:03 11/04/16 14:03 Intake & Output 11/04/16 11/05/16 11/06/16 06:59 06:59 06:59 Intake Total 2531 320 Output Total 1000 800 Balance 1531 -480 Exam: GENERAL: No acute distress HEENT: Conjunctiva clear, healing ecchymosis over right eye, nonicteric, moist mucous membranes, no JVD, midline trachea RESPIRATORY: Clear to auscultation bilaterally, no wheezes, no rhonchi CARDIAC: Regular rate and rhythm, no murmurs/gallops/rubs ABDOMEN: Soft, nondistended, nontender, positive bowel sounds, no rebound, no guarding EXTREMETIES: No edema, cyanosis, clubbing NEUROLOGIC: Alert, oriented to person/place/time, CN's grossly intact, no focal deficits SKIN: No rash, wounds PSYCH: Normal mood, normal affect Results Laboratory Results: 11/04/16 04:57 11/04/16 04:57 Impressions: Head CT 10/31/16 00:00 IMPRESSION: NORMAL BRAIN CT WITHOUT CONTRAST. Chest X-Ray 10/31/16 00:51 IMPRESSION: NO ACUTE RADIOGRAPHIC FINDING IN THE CHEST. Head MRI 11/01/16 09:46 IMPRESSION: UNREMARKABLE MRI OF THE BRAIN WITHOUT INTRAVENOUS GADOLINIUM CONTRAST. NO MASS LESION WITHIN THE PITUITARY FOSSA. PARTIAL VISUALIZATION OF DEGENERATIVE CHANGES CERVICAL SPINE. CORRELATE WITH SYMPTOMS. Qualifiers PATEINT BEING DISCHARGED WITH ANY OF THE FOLLOWING DIAGNOSIS?: No Plan Time Spent: Greater than 30 Minutes
== END 2016-11-04 15:15 | disposition home or self-care (01) | DRG 392 ==
LOC: ER 20:59 → EH 10-31 07:23 → INTOOBSV 10-31 07:23 → UNDOADMIN 10-31 08:03 → EH 10-31 08:03 → 4N 10-31 23:08 → OBSVTOIN 11-03 09:39
PROVIDERS: ADMIT Family Medicine; ATTEND Family Medicine
DX: A08.4 Viral intestinal infection, unspecified (principal); J01.00 Acute maxillary sinusitis, unspecified; R55 Syncope and collapse; G89.29 Other chronic pain; F17.210 Nicotine dependence, cigarettes, uncomplicated; E03.9 Hypothyroidism, unspecified; K21.9 Gastro-esophageal reflux disease without esophagitis; F41.9 Anxiety disorder, unspecified; F32.9 Major depressive disorder, single episode, unspecified; H91.90 Unspecified hearing loss, unspecified ear; M54.9 Dorsalgia, unspecified; E86.0 Dehydration; S09.93XA Unspecified injury of face, initial encounter; W19.XXXA Unspecified fall, initial encounter; Y92.002 Bathroom of unspecified non-institutional (private) residence as the place of occurrence of the external cause; Z91.81 History of falling; Z90.49 Acquired absence of other specified parts of digestive tract; Z79.891 Long term (current) use of opiate analgesic; Z79.899 Other long term (current) drug therapy
CPT/HCPCS: 36415; 70450; 70551; 71010; 80048; 80053; 81001; 83690; 83735; 84439; 84443; 84481; 84484; 85025; 87045; 87205; 87493; 89055; 93005; 93010; G0378; J0780; J1170; J1200; J1644; J2405; J2550; J3480; J3490; J7030; S0164

== ENCOUNTER → 2017-06-04 | Outpatient (CLI) | payer MEDICAID, MEDICARE ==
--- NOTE | 2017-06-04 12:55 | WOMENS IMAGING REPORT ---
EXAM DESCRIPTION: BONE DENSITY HIP/SPINE COMPLETED DATE/TIME: 06/04/2017 11:10 am REASON FOR STUDY: MENOPAUSAL SYNDROME; N95.9 Z12.31 ENCNTR SCREEN MAMMOGRAM FOR MALIGNANT NEOPLASM OF AMINA N95.9 UNSPECIFIED MENOPAUSAL AND PERIMENOPAUSAL DISORDER COMPARISON: None. TECHNIQUE: Dual-Energy X-ray Absorptiometry (DEXA) of the AP Spine and Hip. LIMITATIONS: None. FINDINGS: LUMBAR SPINE: The bone mineral density (BMD) measured from L1-L4 in the AP projection correlates with a T-score of -3.1, which is osteoporosis as defined by the World Health Organization. HIP: The bone mineral density (BMD) measured in the left hip correlates with a T-score of -3.5 in the femo ral neck, which is osteoporosis as defined by the World Health Organization. IMPRESSION: 1. LUMBAR SPINE: Osteoporosis 2. HIP: Osteoporosis COMMENT: The World Health Organization defines low BMD as follows: T-score: Normal: Greater than -1.0 Osteopenia: Between -1.0 and -2.5 Osteoporosis: Less than -2.5 without fractures Established osteoporosis: Less than -2.5 with fractures In general, you may wish to consider: Diagnosis Treatment Follow-up DEXA Normal BMD Prevention 2-3 years Osteopenia Prevention/Therapy 1-2 years Osteoporosis Therapy Yearly TECHNICAL DOCUMENTATION: JOB ID: [id number]- All Rights Reserved
== END ==
LOC: WI 08:46
PROVIDERS: ATTEND Family Medicine
DX: Z12.31 Encounter for screening mammogram for malignant neoplasm of breast (principal); N95.9 Unspecified menopausal and perimenopausal disorder; M81.0 Age-related osteoporosis without current pathological fracture
CPT/HCPCS: 77063; 77080; G0202; 77067

== ENCOUNTER 2017-06-07 18:25 | Emergency (ER) | payer MEDICARE ==
[2017-06-07] MEDS ORDERED: DIPHENHYDRAMINE HCL 50 MG/ML VIAL IV ONE (19:12)
[2017-06-07] MEDS ORDERED: PANTOPRAZOLE SODIUM 40 MG VIAL IV ONE (19:12)
[2017-06-07] MEDS ORDERED: METOCLOPRAMIDE HCL INJ/PF 10 MG/2 ML SDV IV ONE (19:12)
--- NOTE | 2017-06-07 19:12 | ER Document Report ---
ED General - General Chief Complaint: GI Bleeding Stated Complaint: VOMITING Time Seen by Provider: 06/07/17 18:42 Mode of Arrival: Ambulatory Information source: Patient Notes: This is a 56-year-old female with a history of gastric ulcers, fibromyalgia, chronic back pain who presents to the emergency room with nausea, vomiting coffee grounds and black stools. Patient states her symptoms first started last Thursday. Patient has not seen her GI doctor for a while and that was in [facility] (she has been living in town here for about a year). She does have a local primary care doctor (Dr. Chowdhury ). Local TRAVEL OUTSIDE OF THE [place] IN LAST 30 DAYS: No - HPI Onset: Last week Onset/Duration: Gradual Quality of pain: Dull Severity: Moderate Pain Level: 2 Associated symptoms: denies: Chest pain, Fever, Shortness of breath Exacerbated by: Denies Relieved by: Denies Similar symptoms previously: Yes Recently seen / treated by doctor: No - Related Data Allergies/Adverse Reactions: cefaclor [From [facility]] Allergy (Verified 10/31/16 01:23) Past Medical History - General Information source: Patient - Social History Smoking Status: Current Every Day Smoker Cigarette use (# per day): Yes - Half pack a day Chew tobacco use (# tins/day): No Smoking Education Provided: Yes - 1-2 minutes Frequency of alcohol use: None Drug Abuse: None Lives with: Alone Family History: Reviewed & Not Pertinent Patient has suicidal ideation: No Patient has homicidal ideation: No - Past Medical History Cardiac Medical History: Denies: Hx Congestive Heart Failure, Hx DVT, Hx Heart Attack, Hx Hypercholesterolemia, Hx Hypertension, Hx Pulmonary Embolism Pulmonary Medical History: Denies: Hx Asthma, Hx COPD Neurological Medical History: Reports: Hx Seizures Endocrine Medical History: Reports: Hx Hypothyroidism. Denies: Hx Diabetes Mellitus Type 1, Hx Diabetes Mellitus Type 2, Hx Hyperthyroidism Renal/ Medical History: Denies: Hx Peritoneal Dialysis Malignancy Medical History: Reports: None GI Medical History: Reports: Hx Gastroesophageal Reflux Disease, Hx Ulcer. Denies: Hx Cirrhosis, Hx Hepatitis Musculoskeltal Medical History: Reports Hx Arthritis, Reports Hx Fibromyalgia Skin Medical History: Reports None Psychiatric Medical History: Reports: Hx Depression Infectious Medical History: Denies: Hx Hepatitis Past Surgical History: Reports: Hx Appendectomy, Hx Cholecystectomy, Hx Hysterectomy, Hx Tonsillectomy Review of Systems - Review of Systems Constitutional: denies: Chills, Fever, Malaise EENT: No symptoms reported Cardiovascular: No symptoms reported Respiratory: No symptoms reported Gastrointestinal: See HPI Genitourinary: No symptoms reported Female Genitourinary: No symptoms reported Musculoskeletal: No symptoms reported Skin: No symptoms reported Hematologic/Lymphatic: No symptoms reported Neurological/Psychological: No symptoms reported Physical Exam - Vital signs Vitals: Temp Pulse Resp BP Pulse Ox 98.1 F 68 20 125/52 L 100 06/07/17 18:36 06/07/17 18:36 06/07/17 18:36 06/07/17 18:36 06/07/17 18:36 Notes: Physical exam: GENERAL: This is a 56-year-old female, alert and oriented 3, no acute distress HEAD: Atraumatic, normocephalic. EYES: Pupils equal round and reactive to light, extraocular movements intact, sclera anicteric, conjunctiva are normal. ENT: TMs normal, nares patent, oropharynx clear without exudates. Moist mucous membranes. NECK: Normal range of motion, supple without lymphadenopathy or JVD. LUNGS: Breath sounds clear to auscultation bilaterally and equal. No wheezes rales or rhonchi. HEART: Regular rate and rhythm without murmurs, rubs or gallops. ABDOMEN: Soft, normoactive bowel sounds. the patient does have tenderness in the epigastrium without rebound or guarding. No pulsatile masses. Rectal: Stool brown, sent for study EXTREMITIES: Normal range of motion, no pitting or edema. No clubbing or cyanosis. NEUROLOGICAL: Cranial nerves II through XII grossly intact. Normal speech, normal gait. PSYCH: Normal mood, normal affect. SKIN: Warm, Dry, normal turgor, no rashes or lesions noted. Course - Re-evaluation Re-evalutation: 06/07/17 22:48 The patient was treated with IV fluids, IV antibiotics and she feels better. She still has some symptoms. I have explained to her that we do not have a GI doctor here, so our choices are to transfer her to an institution with a GI doctor or have her see a GI doctor as an outpatient. At this point in time, she is hemodynamically stable, her labs are stable, her stool was negative for blood, a CT scan of the abdomen shows no acute intra-abdominal process: Hence, there really is no indication for an acute transfer to another hospital at this time. Therefore, I will refer her to a local GI doctor (I gave her numbers of 2 ), I will give her a copy of all the tests done and all the labs done here tonight so that she can follow-up tomorrow with her primary care doctor (Dr. Chowdhury). 06/07/17 22:53 - Vital Signs Vital signs: Temp Pulse Resp BP Pulse Ox 98.1 F 68 15 129/69 H 98 06/07/17 18:36 06/07/17 18:36 06/07/17 20:00 06/07/17 20:00 06/07/17 20:00 - Laboratory Result Diagrams: 06/07/17 18:55 06/07/17 18:55 Laboratory results interpreted by me: 06/07/17 06/07/17 18:55 18:55 MCV 100 H Seg Neutrophils % 80.8 H Lymphocytes % 9.0 L Chloride 108 H Glucose 118 H - Diagnostic Test Radiology reviewed: Image reviewed, Reports reviewed - The abdomen shows no acute intra-abdominal process - EKG Interpretation by Me Rate: Normal Rhythm: NSR - EKG shows normal sinus rhythm with a ventricular rate of 65, patient does have accentuated T waves in V3 and V4. There is in no acute ST elevations or depressions. Discharge - Discharge Clinical Impression: Gastritis, Vomiting with nausea Condition: Stable Disposition: HOME, SELF-CARE Additional Instructions: Recommendations: Rest, drink plenty of fluids, advance diet slowly. Take the Reglan for nausea. Follow-up with Dr. Elias's office tomorrow: Bring a copy of today's labs and CT report with you. Continue with the Nexium and other medicines. Follow-up with a GI doctor (Dr. Chowdhury may have someone in mind, however, I have placed the number to GI doctors on the chart. Prescriptions: Metoclopramide HCl [Reglan 10 mg Tablet] 1 - 2 tab PO ASDIR PRN #25 tablet PRN Reason: Referrals: JIM CHOWDHURY MD [Primary Care Provider] - Follow up tomorrow MARIELLE GERONIMO MD [ACTIVE STAFF] - Follow up as needed (This is the number of a GI doctor) IBEGBU,DEXTER, MD [ACTIVE STAFF] - Follow up as needed (This is the number of a GI doctor as well)
[2017-06-07 19:20] LABS: ABSOLUTE BASOPHILS # (AUTO) 0.1 10^3/uL (0.0-0.2); ABSOLUTE LYMPHOCYTES (AUTO) 0.7 10^3/uL (0.5-4.7); ABSOLUTE MONOCYTES (AUTO) 0.7 10^3/uL (0.1-1.4); BASOPHILS % (AUTO) 1.1 % (0-2); EOSINOPHILS % (AUTO) 0.1 % (0-6); HEMATOCRIT 42.4 % (36.0-47.0); HEMOGLOBIN 14.2 g/dL (12.0-15.5); HGB HCT DIFFERENCE 0.2; MEAN CORPUSCULAR HEMOGLOBIN 33.4 pg (27.0-33.4); MEAN CORPUSCULAR HGB CONC 33.4 g/dL (32.0-36.0); MEAN CORPUSCULAR VOLUME 100 fl (80-97); RED BLOOD COUNT 4.24 10^6/uL (3.72-5.28); RED CELL DISTRIBUTION WIDTH 13.7 % (11.5-14.0); SEGMENTED NEUTROPHILS % (AUTO) 80.8 % (42-78); WHITE BLOOD COUNT 7.5 10^3/uL (4.0-10.5)
[2017-06-07 19:55] LABS: ALANINE AMINOTRANSFERASE 21 U/L (9-52); ALBUMIN 3.8 g/dL (3.5-5.0); ALKALINE PHOSPHATASE 71 U/L (38-126); ANION GAP 11 (5-19); ASPARTATE AMINO TRANSFERASE 29 U/L (14-36); BILIRUBIN,DIRECT 0.3 mg/dL (0.0-0.4); BILIRUBIN,TOTAL 0.3 mg/dL (0.2-1.3); BLOOD UREA NITROGEN 17 mg/dL (7-20); CALCIUM 8.9 mg/dL (8.4-10.2); CARBON DIOXIDE 25 mmol/L (22-30); CHLORIDE 108 mmol/L (98-107); CREATINE KINASE 81 U/L (30-135); CREATININE RESULT 0.55 mg/dL (0.52-1.25); GLUCOSE 118 mg/dL (75-110); MAGNESIUM 1.7 mg/dL (1.6-2.3); POTASSIUM 3.9 mmol/L (3.6-5.0); SODIUM 143.5 mmol/L (137-145); TOTAL PROTEIN 6.4 g/dL (6.3-8.2)
--- NOTE | 2017-06-07 20:02 | RADIOLOGY REPORT (SQ) ---
EXAM DESCRIPTION: CHEST SINGLE VIEW COMPLETED DATE/TIME: 06/07/2017 7:12 pm REASON FOR STUDY: vomiting COMPARISON: 10/31/2016 EXAM PARAMETERS: NUMBER OF VIEWS: One view. TECHNIQUE: Single frontal radiographic view of the chest acquired. RADIATION DOSE: NA LIMITATIONS: None. FINDINGS: LUNGS AND PLEURA: No acute opacities, masses or pneumothorax. No pleural effusion. MEDIASTINUM AND HILAR STRUCTURES: Stable. HEART AND VASCULAR STRUCTURES: Heart normal in size. Normal vasculature. BONES: No acute findings. HARDWARE: None in the chest. OTHER: No other significant finding. IMPRESSION: NO ACUTE RADIOGRAPHIC FINDING IN THE CHEST. TECHNICAL DOCUMENTATION: JOB ID: [id number]
[2017-06-07 20:06] LABS: CREATINE KINASE MB 0.42 ng/mL (<4.55)
[2017-06-07 20:08] LABS: TROPONIN I < 0.012 ng/mL
--- NOTE | 2017-06-07 21:23 | EKG REPORT ---
SEVERITY:- ABNORMAL ECG - SINUS RHYTHM LEFT ATRIAL ABNORMALITY LATE PRECORDIAL TRANSITION : Confirmed by: Efrain Falcon MD 07-Jun-2017 21:23:10
--- NOTE | 2017-06-07 21:31 | RADIOLOGY REPORT (SQ) ---
EXAM DESCRIPTION: CT ABD/PELVIS WITH IV ONLY COMPLETED DATE/TIME: 06/07/2017 9:18 pm REASON FOR STUDY: abd pain COMPARISON: 07/22/2011 TECHNIQUE: CT scan of the abdomen and pelvis performed using helical scanning technique with dynamic intravenous contrast injection. No oral contrast. Images reviewed with lung, soft tissue, and bone windows. Reconstructed coronal and sagittal MPR images reviewed. Delayed images for evaluation of the urinary system also acquired. All images stored on PACS. All CT scanners at this facility use dose modulation, iterative reconstruction, and/or weight based d osing when appropriate to reduce radiation dose to as low as reasonably achievable (ALARA). [facility]: Dose Right [facility]: CareDose [facility]: Dose Right [facility]: Teradose 4D [facility]: [employer] CONTRAST TYPE AND DOSE: contrast/concentration: Isovue 370.00 mg/ml; Total Contrast Delivered: 46.0 ml; Total Saline Delivered: 65.0 ml RENAL FUNCTION: GFR > 60. RADIATION DOSE: Up-to-date CT equipment and radiation dose reduction techniques were employed. CTDIv ol: NaN - NaN mGy. DLP: 0 mGy-cm.. LIMITATIONS: None. FINDINGS: LOWER CHEST: No significant findings. No nodules or infiltrates. LIVER: Normal size. Similar small parenchymal cyst. Similar mildly dilated central ducts. SPLEEN: Normal size. No focal lesions. PANCREAS: No masses. No significant calcifications. No adjacent inflammation or peripancreatic fluid collections. Pancreatic duct not dilated. GALLBLADDER: Surgically absent. ADRENAL GLANDS: No significant masses or asymmetry. RIGHT KIDNEY AND URETER: Small parenchymal cysts. No significant calcifications. No hydronephrosi s or hydroureter. LEFT KIDNEY AND URETER: No solid masses. Small parenchymal calcifications. No hydronephrosis or h ydroureter. AORTA AND VESSELS: No aneurysm. No dissection. Renal arteries, SMA, celiac without stenosis. RETROPERITONEUM: No retroperitoneal adenopathy, hemorrhage or masses. BOWEL AND PERITONEAL CAVITY: No masses or inflammatory changes. No free fluid or peritoneal masses. APPENDIX: Not visualized. PELVIS: Prior hysterectomy. No free fluid. Normal bladder. ABDOMINAL WALL: No masses. No hernias. BONES: No acute findings. OTHER: No other significant finding. IMPRESSION: NO ACUTE FINDING IN THE ABDOMEN OR PELVIS ON CT SCAN WITH IV CONTRAST. TECHNICAL DOCUMENTATION: JOB ID: [id number] Quality ID # [id number]: Final reports with documentation of one or more dose reduction techniques (e.g., Au tomated exposure control, adjustment of the mA and/or kV according to patient size, use of iterative reconstruction technique) 2010 [email or web address]- All Rights Reserved
[2017-06-07 23:28] VITALS: BP 122/66
== END 2017-06-07 23:26 | disposition home or self-care (01) ==
LOC: ER 18:25
DX: K29.70 Gastritis, unspecified, without bleeding (principal); R11.2 Nausea with vomiting, unspecified; R10.816 Epigastric abdominal tenderness; F17.210 Nicotine dependence, cigarettes, uncomplicated; Z71.6 Tobacco abuse counseling; Z87.19 Personal history of other diseases of the digestive system; Z90.49 Acquired absence of other specified parts of digestive tract; Z90.710 Acquired absence of both cervix and uterus; Z88.1 Allergy status to other antibiotic agents
CPT/HCPCS: 93005; 99285; 96374; 96375; 36415; 82553; 82550; 83735; 85025; 82272; 80053; 84484; 71010; 74177; 93010; J1200; J2765; C9113; S0164

== ENCOUNTER → 2017-06-16 | Outpatient (CLI) | payer MEDICAID, MEDICARE ==
--- NOTE | 2017-06-16 13:10 | RADIOLOGY REPORT (SQ) ---
EXAM DESCRIPTION: CT LUNG CANCER SCREENING COMPLETED DATE/TIME: 06/16/2017 12:17 pm REASON FOR STUDY: NICOTINE DEPENDNCE (F17.200) F17.200 NICOTINE DEPENDENCE, UNSPECIFIED, UNCOMPLICA GENESIS N95.9 UNSPECIFIED MENOPAUSAL AND PERIMENOPAUSAL DISORDER Has the patient had a Chest CT scan within the past year? No Was the patient offered tobacco cessation counseling? Yes Was the patient engaged in shared decision making for this test? Yes Does the patient have signs or symptoms of Lung Cancer? No Is the patient a smoker? Yes How many packs per year? 365 How many years since quitting smoking? Not applicable Patients age: 56 COMPARISON: None. TECHNIQUE: Low Dose CT scan performed of the chest without intravenous contrast for purposes of scre ening for lung cancer. Images reviewed with lung, soft tissue and bone windows. Reconstructed coron al and sagittal MPR images reviewed. All images stored on PACS. All CT scanners at this facility use dose modulation, iterative reconstruction, and/or weight based d osing when appropriate to reduce radiation dose to as low as reasonably achievable (ALARA). [facility]: Dose Right [facility]: CareDose [facility]: Dose Right [facility]: Teradose 4D [facility]: [employer] RADIATION DOSE: Up-to-date CT equipment and radiation dose reduction techniques were employed. CTDIv ol: 1.9 mGy. DLP: 69 mGy-cm. mGy. . LIMITATIONS: No technical limitations. FINDINGS: LUNG NODULES: 3 mm subpleural noncalcified nodule posterior right lower lobe axial image 292/467. 3 mm subpleural noncalcified nodule posterior right lower lobe axial image 235/467. REMAINING LUNGS AND PLEURA: There is biapical pleuroparenchymal scarring similar compared to chest films from 10/31/2016 and 06/07/2017. No pleural calcifications or pleural fluid. No pneumothorax. No scarring or interstitial changes. HILAR AND MEDIASTINAL STRUCTURES: No identified masses. No abnormal nodes. HEART AND VASCULAR STRUCTURES: No aortic aneurysm. No pericardial effusion. No cardiac devices. CORONARY ARTERY CALCIFICATIONS: No significant calcifications. UPPER ABDOMEN, THYROID, BONES, OTHER SOFT TISSUES: No significant findings. IMPRESSION: BENIGN FINDINGS IN THE LUNGS. NO OTHER CLINICALLY SIGNIFICANT/POTENTIALLY CLINICALLY SIGNIFICANT FINDINGS LUNGRADS: LUNGRADS: 2 BENIGN APPEARANCE OR BEHAVIOR. NODULES WITH A VERY LOW LIKELIHOOD OF BECOMING A CLINICALLY ACTIVE CANCER DUE TO SIZE OR LACK OF GROWTH. MODIFIER: NONE. RECOMMENDATION: Continue annual screening with LDCT in 12 months. COMMENT: CRITERIA: Solid nodule(s): < 6 mm; new < 4 mm. Part solid nodule(s): < 6 mm total diameter on baseline screening. Non solid nodule(s) (GGN): < 20 mm OR ? 20 and unchanged or slowly growing. Category 3 or 4 modules unchanged for ? 3 months. TECHNICAL DOCUMENTATION: JOB ID: [id number] Quality ID # [id number]: Final reports with documentation of one or more dose reduction techniques (e.g., Au tomated exposure control, adjustment of the mA and/or kV according to patient size, use of iterative reconstruction technique) 2010 [employer]
== END ==
LOC: RAD 11:00
PROVIDERS: ATTEND Family Medicine
DX: Z12.2 Encounter for screening for malignant neoplasm of respiratory organs (principal); F17.210 Nicotine dependence, cigarettes, uncomplicated; N95.9 Unspecified menopausal and perimenopausal disorder; R91.1 Solitary pulmonary nodule
CPT/HCPCS: G0297

== ENCOUNTER 2017-09-17 09:23 | Day surgery (SDC) | payer MEDICARE ==
[~2017-09-17 09:23] MED LIST: KETOROLAC TROMETHAMINE 0.45% 4 DROP/0.4 ML DROPERETTE OS PRN
[2017-09-17] MEDS ORDERED: CHONDR SU A NA/HYALUR INTRAOC KIT (SURGICARE) ONE (09:34)
[2017-09-17] MEDS ORDERED: EPINEPHRINE INJ/PF 1 MG/1 ML AMPULE ONE (09:34)
[2017-09-17] MEDS ORDERED: LIDOCAINE 1% INJ-PF (10 MG/ML) 30 ML SDV ONE (09:34)
[2017-09-17] MEDS: TROPICAMIDE 1% OPH SOLN 3 ML OS PRN ×3 (09:39→09:59)
[2017-09-17] MEDS: CYCLOPENTOLATE 0.2%/PHENYLEPHRINE 1% OPH SOLN 2 ML OS PRN ×3 (09:39→09:59)
[2017-09-17] MEDS: TETRACAINE HCL 0.5% OPH SOLN 2 ML OS PRN ×3 (09:39→10:07)
[2017-09-17] MEDS: BESIFLOXACIN HCL 0.6% OPH SUSP 5 ML BOTTLE OS PRN ×3 (09:40→10:29)
[2017-09-17] MEDS ORDERED: MIDAZOLAM 2 MG/2 ML INJ ONE (09:44)
[2017-09-17] MEDS ORDERED: FENTANYL CITRATE INJ/PF 100 MCG/2 ML AMPUL ONE (09:44)
--- NOTE | 2017-09-17 19:48 | [facility] OPERATIVE REPORT E ---
[facility] Operative Report NAME: MAGGIE CORTES AGE: 57Y DATE OF SURGERY: 09/17/2017 ROOM: PREOPERATIVE DIAGNOSIS: CATARACT, LEFT EYE. POSTOPERATIVE DIAGNOSIS: CATARACT, LEFT EYE. OPERATION: Cataract extraction with intraocular lens implant of the left eye. SURGEON: CHILO COFFMAN M.D. ANESTHESIA: Topical. PROCEDURE: After obtaining appropriate consent, the patient's left eye was prepped and draped in sterile fashion as well as the surgeon in a sterile manner and cataract surgery was started. First a paracentesis blade was used to make a small side-port incision. Viscoelastic was used to inflate the anterior chamber. Next a 2.4 mm incision was made with the paracentesis blade. A continuous capsulorrhexis incision was made using a cystotome and Utrata forceps. Following this hydrodissection was carried out to make the lens fully loose and mobile and it was rotated 90 degrees. Following this, a xwaekr-wlw-kvxvxay technique was used to phacoemulsify the lens with a CDE of 6.19. The remaining cortex was removed with irrigation/aspiration. Provisc was instilled into the capsular bag to inflate the bag. A SN60WF, 22.0 diopter lens was placed. The remaining viscoelastic material was removed with irrigation/aspiration. Following this, a 10-0 nylon suture was used to close the incision and it was found to be watertight. Vigamox was instilled in the eye and a protective shield was placed over the eye. The patient returned to the postoperative recovery in stable condition. DICTATING PHYSICIAN: CHILO COFFMAN M.D. [id number] 1942 PHY#: [id number] ID: [id number] JOB#: [id number] ACCT: [id number] cc:CHILO COFFMAN M.D. >
--- NOTE | 2017-09-17 19:53 | [facility] DISCHARGE SUMMARY E ---
[facility] Discharge Summary NAME: MAGGIE CORTES AGE: 57Y ADMITTED: 09/17/2017 DISCHARGED: 09/17/2017 FINAL DIAGNOSIS: CATARACT, LEFT EYE. HISTORY/CLINIC COURSE: This is a 57-year-old patient who underwent cataract extraction to the left eye without complication, woke up in postoperative recovery in stable condition. The patient underwent surgery after having difficulty seeing road signs, difficulty seeing words on TV. Patient is to be on a regular diet. No bending at the waist, no heavy lifting. Patient should use her Besivance, Ilevro, and Durezol at 3 p.m. and 8 p.m., and sleep with a rigid shield. I will see her for 1 day postoperative tomorrow. DICTATING PHYSICIAN: CHILO COFFMAN M.D. 5139M 1945 PHY#: [id number] ID: [id number] JOB#: [id number] ACCT: [id number] cc:CHILO COFFMAN M.D. >
== END 2017-09-17 11:20 | disposition home or self-care (01) ==
LOC: SC 09:23
PROVIDERS: ATTEND Internal Medicine
PROC: 08RK3JZ Replacement of Left Lens with Synthetic Substitute, Percutaneous Approach (ICD-10-PCS; principal; 2017-09-17 10:30)
DX: H25.813 Combined forms of age-related cataract, bilateral (principal); K21.9 Gastro-esophageal reflux disease without esophagitis; E07.9 Disorder of thyroid, unspecified; D64.9 Anemia, unspecified; F17.210 Nicotine dependence, cigarettes, uncomplicated; Z88.8 Allergy status to other drugs, medicaments and biological substances; Z79.899 Other long term (current) drug therapy; Z87.11 Personal history of peptic ulcer disease
CPT/HCPCS: 66984; V2632; J2250; J3490 ×2; A9270; J0171; 142; J3010

== ENCOUNTER 2017-10-08 09:15 | Day surgery (SDC) | payer MEDICARE ==
[~2017-10-08 09:15] MED LIST changes: +KETOROLAC TROMETHAMINE 0.45% 4 DROP/0.4 ML DROPERETTE OD PRN; -KETOROLAC TROMETHAMINE 0.45% 4 DROP/0.4 ML DROPERETTE OS PRN
[2017-10-08] MEDS ORDERED: EPINEPHRINE INJ/PF 1 MG/1 ML AMPULE ONE (09:35)
[2017-10-08] MEDS ORDERED: CHONDR SU A NA/HYALUR INTRAOC KIT (SURGICARE) ONE (09:36)
[2017-10-08] MEDS ORDERED: LIDOCAINE 1% INJ-PF (10 MG/ML) 30 ML SDV ONE (09:36)
[2017-10-08] MEDS: CYCLOPENTOLATE 0.2%/PHENYLEPHRINE 1% OPH SOLN 2 ML OD PRN ×3 (09:38→09:59)
[2017-10-08] MEDS: TROPICAMIDE 1% OPH SOLN 3 ML OD PRN ×3 (09:38→09:59)
[2017-10-08] MEDS: TETRACAINE HCL 0.5% OPH SOLN 2 ML OD PRN ×3 (09:38→10:10)
[2017-10-08] MEDS: BESIFLOXACIN HCL 0.6% OPH SUSP 5 ML BOTTLE OD PRN ×3 (09:39→10:29)
[2017-10-08] MEDS ORDERED: MIDAZOLAM 2 MG/2 ML INJ ONE (09:46)
--- NOTE | 2017-10-08 19:54 | [facility] OPERATIVE REPORT E ---
[facility] Operative Report NAME: MAGGIE CORTES AGE: 57Y DATE OF SURGERY: 10/08/2017 ROOM: PREOPERATIVE DIAGNOSIS: CATARACT, RIGHT EYE. POSTOPERATIVE DIAGNOSIS: CATARACT, RIGHT EYE. OPERATION: Cataract extraction with intraocular lens implant of the right eye. SURGEON: CHILO COFFMAN M.D. ANESTHESIA: Topical. PROCEDURE: After obtaining appropriate consent, the patient's right eye was prepped and draped in sterile fashion as well as the surgeon in a sterile manner and cataract surgery was started. First a paracentesis blade was used to make a small side-port incision. Viscoelastic was used to inflate the anterior chamber. Next a 2.4 mm incision was made with the paracentesis blade. A continuous capsulorrhexis incision was made using a cystotome and Utrata forceps. Following this hydrodissection was carried out to make the lens fully loose and mobile and it was rotated 90 degrees. Following this, a tcnrsj-zra-niuumdo technique was used to phacoemulsify the lens with a CDE of 7.14. The remaining cortex was removed with irrigation/aspiration. Provisc was instilled into the capsular bag to inflate the bag. A SN60WF, 20.5 diopter lens was placed. The remaining viscoelastic material was removed with irrigation/aspiration. Following this, a 10-0 nylon suture was used to close the incision and it was found to be watertight. Vigamox was instilled in the eye and a protective shield was placed over the eye. The patient returned to the postoperative recovery in stable condition. DICTATING PHYSICIAN: CHILO COFFMAN M.D. [id number] 1950 PHY#: [id number] ID: [id number] JOB#: [id number] ACCT: [id number] cc:CHILO COFFMAN M.D. >
--- NOTE | 2017-10-08 20:03 | DISCHARGE SUMMARY E ---
Discharge Summary NAME: MAGGIE CORTES : 1960 AGE: 57Y ADMITTED: 10/08/2017 DISCHARGED: HOSPITAL COURSE: This is a [id number]-[id number]-old patient who underwent cataract extraction of the right eye. DIAGNOSIS: Cataract, right eye. She underwent surgery because she was having difficulty getting closer to road signs to see them clearly and glare from headlights making it tough to drive. DISCHARGE INSTRUCTIONS: She is to be on a regular diet. No bending at the waist, no heavy lifting. She is to use her Besivance, Ilevro, and Durezol at 3:00 p.m. and 8:00 p.m., and sleep with a rigid shield. I will see her for a 1 day postoperative tomorrow. DICTATING PHYSICIAN: CHILO COFFMAN M.D. 5090M 1952 PHY#: [id number] ID: [id number] JOB#: [id number] ACCT: [id number] cc:CHILO COFFMAN M.D. >
== END 2017-10-08 11:16 | disposition home or self-care (01) ==
LOC: SC 09:15
PROVIDERS: ATTEND Internal Medicine
PROC: 08RJ3JZ Replacement of Right Lens with Synthetic Substitute, Percutaneous Approach (ICD-10-PCS; principal; 2017-10-08 10:30)
DX: H25.811 Combined forms of age-related cataract, right eye (principal); Z96.1 Presence of intraocular lens; F17.210 Nicotine dependence, cigarettes, uncomplicated; K21.9 Gastro-esophageal reflux disease without esophagitis; E07.9 Disorder of thyroid, unspecified; D64.9 Anemia, unspecified; I49.9 Cardiac arrhythmia, unspecified
CPT/HCPCS: 66984; V2632; J2250; J3490 ×2; A9270; J0171; 142